=== PATIENT | female | born 1965 | race Caucasian/White ===

== ENCOUNTER 2018-06-29 05:39 | Inpatient (IN) | payer OTHER ==
--- NOTE | 2018-06-25 22:33 | PREOPHP ---
DATE OF ADMISSION: 06/29/2018 The patient is coming on 06/29/2018 for a surgical procedure. HISTORY OF PRESENT ILLNESS: This is a 53-year-old female, 6, para 3, with 3 previous cesarea n sections and a tubal ligation, a patient with a history of pelvic pain and hypertension. The blanche ent has been referred to me due to severe menometrorrhagia, heavy vaginal bleeding, pelvic pain, back pain, anemia and intractable pelvic pain. The patient has been in menopause, but she has been still bleeding with abdominal pain that is intractable and back pain that is intractable with pain medicat ions all the time. The uterus is large above the suprapubic bone and she has been having pain with i ntercourse and pain during her regular activities for which she would like this large uterus to be re moved. The patient also is suffering from hot flashes, perspiration, fatigue and bone aches, all rel ated to her menopause. She had a history of hepatitis C that was treated, anemia and asthma. The pa thomas is a smoker. She is on treatment for hypertension with losartan, amlodipine and she uses Prove ntil for asthma and she was taking baby aspirin, from which she was removed temporarily. The patient was referred to her product expert for clearance for the surgery and he agreed to the procedure, as th e patient is stable. REVIEW OF SYSTEMS: Positive for 3 C-sections and tubal ligation. Otherwise, she never had any major medical antecedents except for chronic hypertension that is controlled with medication. She smokes, she does not drink. The patient has a history of asthma and she has no endocrine disease. No neuro logical or orthopedic disease. ALLERGIES: SHE IS ALLERGIC TO CODEINE. SOCIAL HISTORY: She has no history of drugs. FAMILY HISTORY: Hypertension. MEDICATIONS: 1. She is on losartan. 2. Aldactone. 3. Atenolol. 4. Aspirin. RECOMMENDATIONS: The patient was advised for a total abdominal hysterectomy and bilateral salpingect dipesh. The preservation of the ovaries was discussed with her and there is severe endometriosis or a m alignancy is involving the structure. DIAGNOSES: Intractable pelvic and back pain, previous C-sections, tubal ligation, possible adhesions , multiple fibroids, and the procedure was advised and risks and possible complications were explaine d. A written information was provided. She had no more questions and agreed to go ahead with the drew herbert with full understanding and no more questions. Dictated By: WENDIE FREGOSO/RIVAS Conf#: [id number] DID#: [id number]
[~2018-06-29] VITALS: Ht 172.7 cm; Wt 105.4 kg
[2018-06-29] VITALS (31 sets, daily range): BP systolic 97–132; BP diastolic 60–78; PULSE 46–88; RESP 14–36; Ht 172.7 cm; Wt 105.4 kg
[2018-06-29] MEDS ORDERED: CEFAZOLIN 2 GM/50 ML (PMX) 50 ML IVPB SCH (06:00)
[2018-06-29] MEDS: LACTATED RINGER'S 1,000 ML IV* SCH ×2 (06:50→13:41)
[2018-06-29] MEDS ORDERED: LOSA100T15 PO (07:00)
[2018-06-29] MEDS ORDERED: LIDOCAINE 2% (SDV) 5 ML INJ ONE (07:00)
[2018-06-29] MEDS ORDERED: ATEN50TA PO (07:00)
[2018-06-29] MEDS ORDERED: DICL75TA2 PO (07:01)
[2018-06-29] MEDS ORDERED: SPIR25TA PO (07:02)
--- NOTE | 2018-06-29 07:20 | PREAC ---
Date/Time of Note Date/Time of Note DATE: 06/29/18 TIME: 07:18 Anesthesia Eval and Record Evaluation Time Pre-Procedure Interview DATE: 06/29/18 TIME: 07:18 Age 53 Sex female NPO: 8 hrs Preoperative diagnosis fibroid uterus Planned procedure hysterectomy, salpingectomy Past Medical History Past Medical History: Includes Cardio: HTN GI: Obesity Surgery & Anesthesia Issues No known issue Meds Anticoagulation: No Beta Shannan within 24 hr: No Reason Beta Shannan not given: Pt. not on B-Shannan Reported Medications Spironolactone* (Aldactone*) 25 Mg Tablet, 25 MG PO DAILY, #30 TAB 06/29/18 Diclofenac Sodium* (Diclofenac Sodium*) 75 Mg Tablet.dr, 75 MG PO BID, #60 TAB 06/29/18 Atenolol* (Atenolol*) 50 Mg Tablet, 50 MG PO DAILY, #30 TAB 06/29/18 Losartan Potassium* (Losartan Potassium*) 100 Mg Tablet, 100 MG PO DAILY, TAB 06/29/18 Current Medications Lactated Ringer's 1,000 ml @ 125 mls/hr Q8H IV* Last administered on 06/29/18at 06:50; Admin Dose 125 MLS/HR; Start 06/29/18 at 06:00; Stop 06/29/18 at 23:00 Cefazolin Sodium/ Dextrose 50 ml @ 100 mls/hr ONCE IVPB ; Start 06/29/18 at 06:00; Stop 06/29/18 at 14:00 Meds reviewed: Yes Allergies Coded Allergies: codeine (Verified Allergy, Unknown, 06/29/18) Allergies Reviewed: Yes Labs/Studies Labs Reviewed: Reviewed by anesthesiologist Blood Bank Test 06/29/18 06:19 Blood Product Summary Counts test: Negative Studies: ECG (sr), CXR (nl) Pre-procedure Exam Last vitals Vital Signs Date Temp Pulse Resp B/P (MAP) Pulse Ox O2 O2 Flow FiO2 Time Delivery Rate 06/29/18 98.8 67 16 120/72 100 Room Air 06:45 (88) Airway: Adequate mouth opening Mallampati: Mallampati II Teeth: Normal Lung: Normal Heart: Normal ASA Physical Status ASA physical status: 2 Emergency: None Planned Anesthetic General/MAC: ETT Neuraxial: Spinal Planned Pain Management Sub-arachniod narcotics, Parenteral pain med Pre-operative Attestations Prior to commencing anesthesia and surgery, the patient was re-evaluated, there was verification of: *The patient's identity *The results of appropriate recent lab work and preoperative vital signs *The above evaluation not changing prior to induction *Anesthetic plan, risk benefits, alternative and complications discussed with patient/family; questions answered; patient/family understands, accepts and wishes to proceed. RICCARDO SHAFER MD June 29, 2018 07:20
[2018-06-29] MEDS ORDERED: PROPOFOL 20 ML ONE ×2 (07:29→09:28)
[2018-06-29] MEDS ORDERED: SUCCINYLCHOLINE CHLORIDE 100 MG/5 ML SYG IV ONE (07:29)
[2018-06-29] MEDS ORDERED: METOCLOPRAMIDE 10 MG INJ ONE (07:29)
[2018-06-29] MEDS ORDERED: CEFAZOLIN 1 GM INJ ONE (07:29)
[2018-06-29] MEDS ORDERED: morphine SULFATE/PF (10 MG/10 ML) INJ ONE (07:29)
[2018-06-29] MEDS ORDERED: ONDANSETRON 4 MG INJ ONE (07:29)
[2018-06-29] MEDS ORDERED: MIDAZOLAM 1 MG/ML 2 ML INJ ONE (07:30)
--- NOTE | 2018-06-29 07:39 | HPN ---
Date/Time of Note Date/Time of Note DATE: 06/29/18 TIME: 07:39 Interval H&P Admission Note Pt. seen H&P reviewed: No system changes WENDIE ROWLAND MD June 29, 2018 07:39
[2018-06-29] MEDS ORDERED: EPHEDrine 25 MG/5 ML SYG ONE (08:04)
[2018-06-29] MEDS ORDERED: PHENYLephrine (100 MCG/ML) 10ML SYG ONE (08:04)
[2018-06-29] MEDS ORDERED: DIPHENHYDRAMINE 50 MG INJ IV PRN (08:30)
[2018-06-29] MEDS ORDERED: hydrALAzine 20 MG INJ IV PRN (08:30)
[2018-06-29] MEDS ORDERED: KETOROLAC 30 MG INJ IV PRN (08:30)
[2018-06-29] MEDS ORDERED: MEPERIDINE 25 MG INJ IV PRN (08:30)
[2018-06-29] MEDS ORDERED: ONDANSETRON 4 MG INJ IV PRN (08:30)
[2018-06-29] MEDS ORDERED: HYDROmorphONE 1 MG/5 ML IV SYRINGE IV PRN ×3 (08:30)
[2018-06-29] MEDS ORDERED: LABETALOL HCL 20MG INJ IV PRN (08:30)
[2018-06-29] MEDS ORDERED: FENTAnyl 50 MCG/ML VIAL IV PRN ×3 (08:30)
[2018-06-29] MEDS ORDERED: KETOROLAC 30 MG INJ ONE (08:55)
--- NOTE | 2018-06-29 09:51 | SIPON ---
Date/Time of Note Date/Time of Note DATE: 06/29/18 TIME: 09:48 Operative Report Preoperative Diagnosis Intractable pelvic and back pain Intractable menometrorrhagia and anemia Large multiple fibroid uterus previous C-sections Hypertension Postoperative Diagnosis Same plus pelvic adhesions Operation/Procedure Performed Subtotal hysterectomy bilateral salpingectomy lysis of adhesions Surgeon see signature line assignment desk assistant [facility] Anesthesia: general Estimated blood loss: 10 - 50 ml's Transfusion Required none Specimen Uterus and tubes Grafts/Implants none Complications none WENDIE ROWLAND MD June 29, 2018 09:51
[2018-06-29] MEDS: KETOROLAC 30 MG INJ IV SCH ×3 (10:00→22:00)
[2018-06-29] MEDS ORDERED: ZOLPIDEM 5 MG TAB PO PRN (10:00)
[2018-06-29] MEDS ORDERED: ONDANSETRON INJ 6 MG in DEXTROSE 5% 50 ML IVPB PRN (10:00)
[2018-06-29] MEDS ORDERED: DIPHENHYDRAMINE 50 MG CAP PO PRN (10:00)
[2018-06-29] MEDS: LACTATED RINGER'S 1,000 ML IV SCH ×2 (10:19→16:36)
--- NOTE | 2018-06-29 10:48 | OPR ---
DATE OF OPERATION: 06/29/2018 PREOPERATIVE DIAGNOSES: 1. Intractable pelvic pain and back pain, intractable menometrorrhagia, anemia, large multiple fibro id uterus. Previous C-sections, hypertension, perimenopausal syndrome. POSTOPERATIVE DIAGNOSES: 1. Intractable pelvic pain and back pain, intractable menometrorrhagia, anemia, large multiple fibro id uterus. Previous C-sections, hypertension, perimenopausal syndrome and pelvic adhesions. OPERATION PERFORMED: Subtotal hysterectomy, bilateral salpingectomy, lysis of adhesions. MODEL BUILDER DISPLAY: SALOM[facility] Post ANESTHESIA: General with Duramorph. ANESTHESIOLOGIST: Dr. Johnson. COMPLICATIONS: None. PROCEDURE: The patient was given epidural anesthesia with general anesthesia, placed in the supine p osition. A Ontiveros catheter was placed in the bladder. The abdomen, perineal and vaginal areas were p repped and draped, and incision was made transversely suprapubically over the previous old scar of ab out 15 cm in diameter. The abdominal cavity was reached and the adhesions of the omentum were lysed. Also, there were adhesions of the adnexal areas as possible old PID were involving the tubes and ov everett. These adhesions were lysed. The uterus was very large with anterior fibroids in the fundus a nd posterior fibroid as the size of golf ball in front and back. The self-retaining retractor was pl aced and the bowels were pushed up. The uterus was held and there were signs of tubal ligation. Fur ther lysis of adhesions was done. The round ligament and ovarian ligament and tube were burned with the LigaSure in both sides and then the uterine vessels were clamped with the LigaSure, burned and cu t. The bladder flap was made. The bladder was rock hard adherent to the cervix. The uterus was rem lori at the level of the cervix, and the stump was revised. The cardinal ligaments were held, clampe d and cut and ligated with #1 Vicryl. The dissection of the cervix was attempted but it was abandone d due to the severity of the adhesions of the bladder, to avoid damage to the bladder. The endocervi x was approached with the cautery and was cauterized thoroughly and then the top of the cervix was cl osed. The fascia was closed with interrupted sutures with #1 Vicryl. Hemostasis was good. At this time, the stumps on the fimbriated end of both tubes were removed by clamping the mesosalpinx and the excision was done. The cavity was revised under water and it was with good hemostasis. Bot h ovaries were protected with Interceed to prevent adhesions. The cavity was cleaned out. The spong e counts and instrument counts were correct and the peritoneum was closed with 2-0 Vicryl sutures. T he fascia was closed with an 0 PDS looped suture, 2-0 Vicryl for the subcutaneous tissue, 3-0 Monocry l subcuticular to the skin. The patient tolerated the procedure well and left the OR awake and stabl e. Sponge counts, instrument counts, needle counts were correct and intravenous antibiotics were giv en for prophylaxis. Dictated By: WENDIE ROWLAND MD [facility] Conf#: [id number] DID#: [id number] CC: WENDIE ROWLAND MD;*EndCC*
[2018-06-29] MEDS: METOCLOPRAMIDE 10 MG TAB PO SCH ×2 (13:40→18:13)
[2018-06-29] MEDS: CEFAZOLIN 1 GM/50 ML (PMX) 50 ML IVPB SCH ×2 (13:41→21:16)
[2018-06-29] MEDS: ENOXAPARIN 30 MG/0.3 ML SYG SC SCH (21:33)
[2018-06-30] VITALS (8 sets, daily range): BP systolic 129–184; BP diastolic 71–88; PULSE 69–97; RESP 16–20
[2018-06-30] MEDS: METOCLOPRAMIDE 10 MG TAB PO SCH ×4 (00:24→17:42)
[2018-06-30] MEDS: LACTATED RINGER'S 1,000 ML IV* SCH (00:31)
[2018-06-30] MEDS: LACTATED RINGER'S 1,000 ML IV SCH ×3 (00:52→17:15)
[2018-06-30] MEDS: ACETAMINOPHEN 325 MG TAB PO PRN ×2 (02:46→19:51)
[2018-06-30] MEDS: KETOROLAC 30 MG INJ IV SCH ×4 (04:00→22:09)
[2018-06-30] MEDS: CEFAZOLIN 1 GM/50 ML (PMX) 50 ML IVPB SCH ×3 (06:18→20:56)
--- NOTE | 2018-06-30 08:01 | PAC ---
Date/Time of Note Date/Time of Note DATE: 06/30/18 TIME: 08:01 Post-Anesthesia Notes Post-Anesthesia Note Last documented vital signs Vital Signs Date Temp Pulse Resp B/P (MAP) Pulse Ox O2 O2 Flow FiO2 Time Delivery Rate 06/30/18 99.7 02:47 06/30/18 99 72 18 129/73 100 01:43 (91) 06/29/18 Nasal 2.0 14:40 Cannula Activity: WNL Respiratory function: WNL Cardiovascular function: WNL Mental status: Baseline Pain reasonably controlled: Yes Hydration appropriate: Yes Nausea/Vomiting absent: No RICCARDO SHAFER MD June 30, 2018 08:01
--- NOTE | 2018-06-30 08:04 | OPPN ---
Date/Time of Note Date/Time of Note DATE: 06/30/18 TIME: 08:02 Anesthesia Follow up Anesthesia Follow up Last documented vital signs Vital Signs Date Temp Pulse Resp B/P (MAP) Pulse Ox O2 O2 Flow FiO2 Time Delivery Rate 06/30/18 99.7 02:47 06/30/18 72 18 129/73 100 01:43 (91) 06/29/18 Nasal 2.0 14:40 Cannula Respiratory function: WNL Cardiovascular function: WNL Comments A 53 year female s/p GA, spinal with duramorph for post op pain POD#1 ia doing fine. N/V, mpain are controlled. No headache, itching, neural deficit. RICCARDO SHAFER MD June 30, 2018 08:04
[2018-06-30] MEDS ORDERED: SPIRONOLACTONE 25 MG TAB PO SCH ×2 (09:00)
[2018-06-30] MEDS ORDERED: ATENOLOL 50 MG TAB PO SCH ×2 (09:00)
[2018-06-30] MEDS ORDERED: LOSARTAN 50 MG TAB PO SCH (09:00)
[2018-06-30] MEDS: LOSARTAN 50 MG TAB PO SCH (09:00)
[2018-06-30] MEDS: ENOXAPARIN 30 MG/0.3 ML SYG SC SCH ×2 (09:05→21:02)
--- NOTE | 2018-06-30 11:41 | PN ---
Date/Time of Note Date/Time of Note DATE: 06/30/18 TIME: 11:40 Assessment/Plan Lines/Catheters IV Catheter Type (from Nrsg): Peripheral IV Ontiveros in Place (from Nrsg): Yes Subjective 24 Hr Interval Summary Patient is day 1 post subtotal hysterectomy bilateral salpingectomy. And lysis of adhesions. Encouraged ambulation Tolerating breakfast Not in pain Feels good Procedure surgery was explained and she is appreciative of it Constitutional: no complaints Feeding: advancing diet Pain Control: mild Detailed Summary Eyes: no complaints ENT: no complaints Respiratory: no complaints Cardiovascular: no complaints Gastrointestinal: no complaints Genitourinary: no complaints Musculoskeletal: no complaints Skin: no complaints Neurologic: no complaints Endocrine: no complaints Lymphatic: no complaints Psychological: no complaints, nl mood/affect Immunologic: no complaints Exam/Review of Systems Vital Signs Vitals Vital Signs Date Temp Pulse Resp B/P (MAP) Pulse Ox O2 O2 Flow FiO2 Time Delivery Rate 06/30/18 99.2 69 18 131/71 99 Nasal 2.0 08:14 (91) Cannula Intake and Output 06/29/18 06/29/18 06/30/18 1414:59 22:59 06:59 IntakeIntake Total 2050 ml 1112.5 ml 2337.5 ml OutputOutput Total 70 ml 300 ml 550 ml BalanceBalance 1980 ml 812.5 ml 1787.5 ml Exam Constitutional: alert, oriented, well developed Psych: no complaints, nl mood/affect Head: normocephalic, atraumatic Eyes: nl conjunctiva, EOMI, nl lids, nl sclera ENMT: nl external ears & nose, nl lips & teeth, nl nasal mucosa & septum, mucosa pink and moist Neck: supple, non-tender Respiratory: clear to auscultation, normal air movement Cardiovascular: regular rate and rhythm, nl pulses Gastrointestinal: soft, nl liver, spleen, non-tender Musculoskeletal: nl extremities to inspection, nl gait and stance Extremities: normal pulses 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
[2018-06-30] MEDS: SPIRONOLACTONE 25 MG TAB PO SCH (15:45)
[2018-06-30] MEDS: hydrALAzine 20 MG INJ IV PRN ×2 (15:45→22:18)
[2018-06-30] MEDS: ATENOLOL 50 MG TAB PO SCH (20:56)
[2018-07-01] VITALS (7 sets, daily range): BP systolic 141–183; BP diastolic 69–93; PULSE 82–92; RESP 19–20
[2018-07-01] MEDS: METOCLOPRAMIDE 10 MG TAB PO SCH ×5 (00:17→23:59)
[2018-07-01] MEDS: KETOROLAC 30 MG INJ IV SCH ×4 (03:52→22:12)
[2018-07-01] MEDS: CEFAZOLIN 1 GM/50 ML (PMX) 50 ML IVPB SCH ×3 (06:01→22:12)
[2018-07-01] MEDS: LOSARTAN 50 MG TAB PO SCH (08:02)
[2018-07-01] MEDS: ENOXAPARIN 30 MG/0.3 ML SYG SC SCH ×2 (08:03→20:03)
[2018-07-01] MEDS: hydrALAzine 20 MG INJ IV PRN (09:38)
--- NOTE | 2018-07-01 12:17 | PD.PPDC ---
PROFESSIONAL BUILDER Discharge Instruction Condition [id number] Patient Condition: [id number] Good Diet [id number] Diet: Qqwnf0m Resume Regular Diet Activity/Restrictions [id number] Activity: Tbmya1m Normal Activity May Shower [id number] Restrictions: Xfnkx2s No Exercising No Lifting No Driving No Sexual Activity Nothing in the Vagina No [place] No Tampons, douche Wound/Drain Care Instructions [id number] Wound/Drain Care Instructions: [id number] Wash with soap and water Keep clean and dry Follow-up Follow-up with Physician: 1, Week/Weeks Return to clinic for [id number] PARALEGAL INSTRUCTOR Instructions: [id number] Fever greater than 101 Chills Worsening abdominal pain Excessive Vaginal Bleeding More than 2 pads per hour Unable to tolerate diet [id number] Surgical Instructions: [id number] Incisional Drainage Incisional Redness WENDIE ROWLAND MD July 01, 2018 12:17
--- NOTE | 2018-07-01 12:20 | PN ---
Date/Time of Note Date/Time of Note DATE: 07/01/18 TIME: 12:18 Assessment/Plan Lines/Catheters IV Catheter Type (from Nrsg): Saline Lock Ontiveros in Place (from Nrsg): No Subjective 24 Hr Interval Summary Day 2 postop Afebrile, feels good Pain is tolerated with medication Having bowel movement already Tolerating diet Incision healing good, encouraged ambulation Constitutional: no complaints Feeding: advancing diet Pain Control: mild Detailed Summary Eyes: no complaints ENT: no complaints Respiratory: no complaints Cardiovascular: no complaints Gastrointestinal: no complaints Genitourinary: no complaints Musculoskeletal: no complaints Skin: no complaints Neurologic: no complaints Endocrine: no complaints Lymphatic: no complaints Psychological: no complaints, nl mood/affect Immunologic: no complaints Exam/Review of Systems Vital Signs Vitals Vital Signs Date Temp Pulse Resp B/P (MAP) Pulse Ox O2 O2 Flow FiO2 Time Delivery Rate 07/01/18 157/83 10:31 (107) 07/01/18 85 09:20 07/01/18 98.2 98 07:53 06/30/18 Room Air 16:41 06/30/18 2.0 08:14 Intake and Output 06/30/18 06/30/18 07/01/18 1515:00 23:00 07:00 IntakeIntake Total 200 ml 50 ml 540 ml BalanceBalance 200 ml 50 ml 540 ml Exam Constitutional: alert, oriented, well developed Psych: no complaints, nl mood/affect Head: normocephalic, atraumatic Eyes: nl conjunctiva, EOMI, nl lids, nl sclera ENMT: nl external ears & nose, nl lips & teeth, nl nasal mucosa & septum, mucosa pink and moist Neck: supple, non-tender Respiratory: clear to auscultation, normal air movement Cardiovascular: regular rate and rhythm, nl pulses Gastrointestinal: soft, nl liver, spleen, non-tender Musculoskeletal: nl extremities to inspection, nl gait and stance Extremities: normal pulses 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
[2018-07-01] MEDS: SPIRONOLACTONE 25 MG TAB PO SCH (15:12)
[2018-07-01] MEDS: ATENOLOL 50 MG TAB PO SCH (19:42)
[2018-07-02] MEDS: KETOROLAC 30 MG INJ IV SCH (04:33)
[2018-07-02] MEDS: CEFAZOLIN 1 GM/50 ML (PMX) 50 ML IVPB SCH (06:36)
[2018-07-02] MEDS: METOCLOPRAMIDE 10 MG TAB PO SCH (06:36)
[2018-07-02 07:00] VITALS: BP 134/76; RESP 15
[2018-07-02] MEDS: LOSARTAN 50 MG TAB PO SCH (08:16)
[2018-07-02] MEDS: ENOXAPARIN 30 MG/0.3 ML SYG SC SCH (08:18)
== END 2018-07-02 10:55 | disposition home or self-care (01) | DRG 743 ==
LOC: REC 05:39 → MS1 11:23
PROVIDERS: ADMIT Obstetrics & Gynecology; ATTEND Obstetrics & Gynecology
PROC: 0DNU0ZZ Release Omentum, Open Approach (ICD-10-PCS; 2018-06-29)
PROC: 0UN20ZZ Release Bilateral Ovaries, Open Approach (ICD-10-PCS; 2018-06-29)
PROC: 0UN70ZZ Release Bilateral Fallopian Tubes, Open Approach (ICD-10-PCS; 2018-06-29)
PROC: 0TNB0ZZ Release Bladder, Open Approach (ICD-10-PCS; 2018-06-29)
PROC: 0UB70ZZ Excision of Bilateral Fallopian Tubes, Open Approach (ICD-10-PCS; 2018-06-29)
PROC: 0UT90ZL Resection of Uterus, Supracervical, Open Approach (ICD-10-PCS; principal; 2018-06-29 07:30)
DX: D25.1 Intramural leiomyoma of uterus (principal); D25.0 Submucous leiomyoma of uterus; N80.0 Endometriosis of uterus; I10 Essential (primary) hypertension; J45.909 Unspecified asthma, uncomplicated; E66.9 Obesity, unspecified; Z68.35 Body mass index [BMI] 35.0-35.9, adult; N92.1 Excessive and frequent menstruation with irregular cycle; D64.9 Anemia, unspecified; Z72.0 Tobacco use; N73.6 Female pelvic peritoneal adhesions (postinfective); N32.89 Other specified disorders of bladder
CPT/HCPCS: 80051; 81001; 82565; 84520; 84703; 85025; 86850; 86900; 86901; 86920; 87086; 88302; 88305; J0360; J0690; J1650; J1885; J2250; J2274; J2370; J2405; J2765; J7120